=== PATIENT | female | born 1990 | race Native Hawaiian/Other Pacific Islander ===

== ENCOUNTER 2018-07-29 22:23 | Emergency (ER) | payer BC ==
[2018-07-29 22:42] VITALS: BP 124/86; PULSE 80; RESP 18; TEMP 98.1; O2SAT 100
[2018-07-30] MEDS ORDERED: Sodium Chloride 0.9% 1,000 ML IV STA (00:14)
--- NOTE | 2018-07-30 00:22 | ED PDOC ---
HPI: Abdomen Time Seen by Provider: 07/29/18 23:08 Chief Complaint (Nursing): Abdominal Pain Chief Complaint (Provider): abdominal pain History Per: Patient History/Exam Limitations: no limitations Onset/Duration Of Symptoms: Hrs, Waxing/Waning Current Symptoms Are (Timing): Still Present Location Of Pain/Discomfort: RUQ Additional Complaint(s): 27 y/o female presents for evaluation of intermittent right upper abdominal pain x 6 hours. Patient states pain radiates to side. Denies fever, nausea/ vomiting, chest pain, shortness of breath, palpitations, changes in bowel movements, urinary symptoms. No mediation taken for relief thus far Past Medical History Reviewed: Historical Data, Nursing Documentation, Vital Signs Vital Signs: Last Vital Signs Temp 98.1 F 07/29/18 22:40 Pulse 80 07/29/18 22:40 Resp 18 07/29/18 22:40 BP 124/86 07/29/18 22:40 Pulse Ox 100 07/30/18 01:59 - Medical History PMH: No Chronic Diseases - Surgical History Surgical History: Appendectomy - Family History Family History: States: No Known Family Hx - Living Arrangements Living Arrangements: With Family - Allergies Allergies/Adverse Reactions: Allergies Allergy/AdvReac Type Severity Reaction Status Date / Time No Known Allergies Allergy Verified 07/29/18 22:40 Review of Systems ROS Statement: Except As Marked, All Systems Reviewed And Found Negative Gastrointestinal: Positive for: Abdominal Pain Physical Exam - Reviewed Nursing Documentation Reviewed: Yes Vital Signs Reviewed: Yes - Physical Exam Appears: Positive for: Well, Non-toxic, No Acute Distress Head Exam: Positive for: ATRAUMATIC, NORMAL INSPECTION, NORMOCEPHALIC Skin: Positive for: Normal Color Eye Exam: Positive for: Normal appearance Cardiovascular/Chest: Positive for: Regular Rate, Rhythm Respiratory: Positive for: Normal Breath Sounds Gastrointestinal/Abdominal: Positive for: Bowel Sounds, Soft, Tenderness (RUQ, right flank (mild)). Negative for: Distended, Guarding, Rebound Back: Positive for: Normal Inspection. Negative for: L CVA Tenderness, R CVA Tenderness Extremity: Positive for: Normal ROM Neurologic/Psych: Positive for: Alert, Oriented (x3) - Laboratory Results Result Diagrams: 07/30/18 00:44 07/30/18 00:44 - ECG O2 Sat by Pulse Oximetry: 100 - Progress ED Course And Treament: labs, urine, RUQ u/s, IV toradol, IV fluids EXAM: US Abdomen Limited, Right Upper Quadrant EXAM DATE/TIME: 07/30/2018 12:14 AM CLINICAL HISTORY: 27 years old, female; Pain; Abdominal pain; Epigastric; Additional info: Ruq pain TECHNIQUE: Real-time ultrasound of the abdomen with image documentation. Examination is focused on the right upper quadrant. COMPARISON: No relevant prior studies available. FINDINGS: Liver: Normal. No masses. Gallbladder: Slightly contracted. No gallstones. There is no gallbladder wall thickening. Common bile duct: Normal. No stones. No dilation. Pancreas: Visualized pancreas is unremarkable. Right kidney: Normal. No mass. No hydronephrosis. IMPRESSION: No acute findings. Will order CT renal protocol for further eval EXAM: CT Abdomen and Pelvis Without Intravenous Contrast EXAM DATE/TIME: 07/30/2018 2:15 AM CLINICAL HISTORY: 27 years old, female; Pain; Abdominal pain; Flank; Right; Prior surgery; Surgery date: 6+ months; Surgery type: Appendectomy; Additional info: Right flank pain TECHNIQUE: Axial computed tomography images of the abdomen and pelvis without intravenous contrast. All CT scans at this facility use at least one of these dose optimization techniques: automated exposure control; mA and/or kV adjustment per patient size (includes targeted exams where dose is matched to clinical indication); or iterative reconstruction. Coronal and sagittal reformatted images were created and reviewed. COMPARISON: US - RIGHT UPPER QUADRANT 07/30/2018 12:50 AM FINDINGS: Lower thorax: No acute findings. ABDOMEN: Liver: Punctate calcification/granuloma on image 53 8 adjacent to the posterior right lobe No mass. Gallbladder and bile ducts: Normal. No calcified stones. No ductal dilation. Pancreas: Normal. No ductal dilation. Spleen: Normal. No splenomegaly. Adrenals: Normal. No mass. Kidneys and ureters: Question minimal fullness to the renal collecting systems. No definite calculi. Stomach and bowel: Normal. No obstruction. No mucosal thickening. Appendix: No evidence of appendicitis. Surgical clips adjacent to the appendiceal tip. The remainder of the appendix appears normal PELVIS: Bladder: Unremarkable as visualized. Reproductive: Faint calcifications along the posterior uterine body ABDOMEN and PELVIS: Intraperitoneal space: Normal. No free air. No significant fluid collection. Bones/joints: No acute fracture. No dislocation. Soft tissues: Unremarkable. Vasculature: Normal. No abdominal aortic aneurysm. Lymph nodes: Normal. No enlarged lymph nodes. IMPRESSION: Minimal fullness to the renal collecting systems bilaterally. No definite calculi Surgical clips adjacent to the distal appendix. The visualized portions of the appendix are normal in appearance. Correlate with prior surgical history On re-eval, patient states pain improved Patient educated on findings, discharged with instructions to follow up PMD 2-3 days Advised tylenol/ibuprofen PRN pain Return precautions given Patient demonstrates full understanding of discharge instructions Patient requires no further intervention in the ED and is stable for discharge at this time Disposition - Clinical Impression Clinical Impression: Abdominal pain - Patient ED Disposition Is Patient to be Admitted: No Counseled Patient/Family Regarding: Studies Performed, Diagnosis, Need For Followup, Rx Given - Disposition Disposition: Routine/Home Disposition Time: 03:13 Condition: IMPROVED Instructions: Acute Abdomen (Belly Pain) Forms: [facility] (Armenian)
[2018-07-30 00:55] LABS: BASO # 0.1 K/uL (0.0-0.2); EOS # 0.1 K/uL (0.0-0.7); EOS % 0.7 % (0.0-4.0); HEMOGLOBIN 12.4 g/dL (12.0-16.0); LYMPH # 2.9 K/uL (1.0-4.3); LYMPH % 24.1 % (20.0-40.0); MEAN CELL VOLUME 81.4 fl (81.0-99.0); MEAN CORPUSCULAR HEMOGLOBIN 27.1 pg (27.0-31.0); MEAN CORPUSCULAR HGB CONC 33.3 g/dL (33.0-37.0); MEAN PLATELET VOLUME 7.6 fl (7.2-11.7); MONO # 0.8 K/uL (0.0-0.8); NEUT # 8.2 K/uL (1.8-7.0); NEUT % 67.2 % (50.0-75.0); RBC 4.56 Mil/uL (3.80-5.20); RED CELL DISTRIBUTION WIDTH 13.8 % (11.5-14.5); WHITE BLOOD COUNT 12.2 K/uL (4.8-10.8)
[2018-07-30 00:57] LABS: SQUAMOUS EPITHIAL < 1 /hpf (0-5); URINE BACTERIA RARE (<OCC); URINE BILIRUBIN NEGATIVE (NEGATIVE); URINE BLOOD SMALL (NEGATIVE); URINE CLARITY CLEAR (Clear); URINE COLOR STRAW (YELLOW); URINE GLUCOSE (UA) NEG (Normal); URINE LEUKOCYTE ESTERASE NEG Leu/uL (Negative); URINE PROTEIN NEGATIVE (NEGATIVE); URINE UROBILINOGEN 0.2-1.0 mg/dL (0.2-1.0)
[2018-07-30 01:01] LABS: PROTHROMBIN TIME 10.8 Seconds (9.8-13.1)
[2018-07-30 01:03] LABS: PARTIAL THROMBOPLASTIN TIME 28.5 Seconds (25.6-37.1)
[2018-07-30 01:06] LABS: ALB/GLOB RATIO 1.4 (1.0-2.1); ALBUMIN 4.1 g/dL (3.5-5.0); ALT/SGPT 27 U/L (9-52); AST/SGOT 21 U/L (14-36); BLOOD UREA NITROGEN 11 mg/dl (7-17); CALCIUM 9.3 mg/dL (8.4-10.2); GFR NON-AFRICAN AMERICAN > 60; LIPASE 49 U/L (23-300)
--- NOTE | 2018-07-30 11:27 | US ---
Date of service: 07/30/2018 HISTORY: Right upper quadrant pain COMPARISON: None. TECHNIQUE: Grayscale imaging was performed. FINDINGS: LIVER: Measures 13.0 cm in length. Normal echogenicity of the liver parenchyma. No mass. No intrahepatic bile duct dilatation. GALLBLADDER: The gallbladder is partially contracted. No gallstones or pericholecystic fluid. The sonographic Puente's sign is negative. COMMON BILE DUCT: Measures 2.0 mm. No stones. No dilatation. PANCREAS: Unremarkable as visualized. No mass. No ductal dilatation. RIGHT KIDNEY: Measures 10.0 cm in length. Normal echogenicity. No calculus, mass, or hydronephrosis. AORTA: No aneurysmal dilatation. IVC: Unremarkable. OTHER FINDINGS: None . IMPRESSION: The gallbladder is partially contracted. No cholelithiasis or biliary dilatation. A preliminary report was provided by [facility].
--- NOTE | 2018-07-30 12:19 | CT ---
Date of service: 07/30/2018 PROCEDURE: CT Abdomen and Pelvis without intravenous contrast HISTORY: right flank pain COMPARISON: None. TECHNIQUE: Technique. Contrast dose: None Radiation dose: Total exam DLP = 281 mGy-cm. This CT exam was performed using one or more of the following dose reduction techniques: Automated exposure control, adjustment of the mA and/or kV according to patient size, and/or use of iterative reconstruction technique. FINDINGS: LOWER THORAX: Unremarkable. LIVER: Bordering the inferior right hepatic lobe margin a punctate calcified granuloma is suggested. No other more central intrahepatic lesions are dilated ducts noted. GALLBLADDER AND BILE DUCTS: Unremarkable. PANCREAS: Unremarkable. No gross lesion or ductal dilatation. SPLEEN: Unremarkable. ADRENALS: Unremarkable. No mass. KIDNEYS AND URETERS: The right intrarenal collecting system appears borderline prominent. No right renal calculi. . No left renal or ureteral calculi on either side. There are hyperdensities seen bordering normal appearing appendix these may represent the postsurgical changes and/or in part calcified right venous calcifications. VASCULATURE: . No aortic aneurysm. An a a right ovarian vein calcification and/or clips for rounded is a consideration. BOWEL: Unremarkable. No obstruction. No gross mural thickening. APPENDIX: Unremarkable. Normal appendix. PERITONEUM: Unremarkable. No free fluid. No free air. LYMPH NODES: Unremarkable. No enlarged lymph nodes. BLADDER: Unremarkable. REPRODUCTIVE: Unremarkable. BONES: No acute fracture. OTHER FINDINGS: None. IMPRESSION: No obstructing urolithiasis. Borderline fullness to the right intrarenal collecting system. No gross peripheral caliectasis seen. These findings are nonspecific and of of unknown chronicity. Other findings as above. Concordant results (preliminary interpretation) provided by [facility].
== END 2018-07-30 03:50 | disposition home or self-care (01) ==
LOC: H.ER 22:23
DX: R10.11 Right upper quadrant pain (principal)
CPT/HCPCS: 74176; 76705; 80053; 81003; 81025; 83690; 85025; 85610; 85730; 87086; 99283; J1885; J7030